=== PATIENT | male | born 1965 | race Caucasian/White ===

== ENCOUNTER 2016-04-24 11:15 | Inpatient (IN) ==
--- NOTE | 2016-04-23 20:30 | Discharge Summary ---
<Xiomy Crowell - Last Filed: 04/23/16 20:28> Date of Encounter: 04/25/16 - Discharge Diagnosis (1) Aseptic loosening of prosthetic knee Priority: Primary Status: Acute Qualifiers: Encounter type: initial encounter Qualified Code(s): T84.038A - Mechanical loosening of other internal prosthetic joint, initial encounter; Z96.659 - Presence of unspecified artificial knee joint (2) CAD (coronary artery disease) Priority: Secondary Status: Chronic Qualifiers: Coronary Disease-Associated Artery/Lesion type: unspecified vessel or lesion type [place] vs. transplanted heart: unspecified whether [place] or transplanted heart Associated angina: angina presence unspecified Qualified Code(s): I25.10 - Atherosclerotic heart disease of [place] coronary artery without angina pectoris (3) HTN (hypertension) Priority: Secondary Status: Chronic Qualifiers: Hypertension type: essential hypertension Qualified Code(s): I10 - Essential (primary) hypertension (4) Tobacco use Priority: Secondary Status: Chronic (5) Obesity Priority: Secondary Status: Chronic Qualifiers: Obesity type: unspecified obesity type Obesity severity: unspecified obesity severity Qualified Code(s): E66.9 - Obesity, unspecified - Discharge Medications Home Medications: Loratadine [Claritin] 10 mg PO DAILY 3 Days 03/06/15 [Rx] Lisinopril [Zestril] 10 mg PO DAILY 06/26/15 [History] Tizanidine HCl [Zanaflex] 4 mg PO Q8H PRN 06/26/15 [History] Aspirin Enteric Coated [Aspirin EC] 325 mg PO DAILY #21 tablet. 04/23/16 [Rx] OxyCODONE Immed Rel [Roxicodone 5 MG] 5 - 10 mg PO Q6HR PRN #40 tablet 04/23/16 [Rx] Aspirin 81 mg PO DAILY 04/24/16 [History] Clopidogrel [Plavix] 75 mg PO DAILY 04/24/16 [History] Folic Acid 1 mg PO HS 04/24/16 [History] Gabapentin [Neurontin] 600 mg PO TID 04/24/16 [History] HYDROcodone/Acet 7.5/325 mg [[place] 7.5-325 mg] 1 tab PO Q6H PRN 04/24/16 [ History] Hydrochlorothiazide 12.5 mg PO DAILY 04/24/16 [History] Hydroxyzine HCl 25 mg PO BID 04/24/16 [History] Lansoprazole [Prevacid] 30 mg PO HS 04/24/16 [History] Metoprolol XL (24 HR) Succ [Toprol Xl] 50 mg PO DAILY 04/24/16 [History] Rosuvastatin [Crestor] 40 mg PO HS 04/24/16 [History] Sertraline [Zoloft] 100 mg PO DAILY 04/24/16 [History] Allergies/Adverse Reactions: Allergies Penicillins Adverse Reaction (Verified 04/24/16 12:56) Rash Primary care physician: Terri Martinez MD - Patient Status Disposition: Home, Self-Care Condition: Good - Discharge Instructions Follow Up With: Antione Kerns MD [Partnered Physician] - 05/23/16 9:45 am Xiomy Crowell PAC [Physician Melt Superintendant] - 05/04/16 8:15 am Terri Martinez MD [Primary Care Provider] - - Hospital Course Hospital course: Mr. Shannon is a 50 year old male - Time Spent with Patient Total time spent providing and/or coordinating discharge services: <Antione Kerns - Last Filed: 04/26/16 08:45> Date of Encounter: 04/26/16 Time of Encounter: 08:44 - Discharge Diagnosis (1) Aseptic loosening of prosthetic knee Priority: Primary Status: Acute Qualifiers: Encounter type: subsequent encounter Qualified Code(s): T84.038D - Mechanical loosening of other internal prosthetic joint, subsequent encounter; Z96.659 - Presence of unspecified artificial knee joint (2) CAD (coronary artery disease) Priority: Secondary Status: Chronic Qualifiers: Coronary Disease-Associated Artery/Lesion type: [place] artery [place] vs. transplanted heart: [place] heart Associated angina: angina presence unspecified Qualified Code(s): I25.10 - Atherosclerotic heart disease of [place] coronary artery without angina pectoris (3) HTN (hypertension) Priority: Secondary Status: Chronic Qualifiers: Hypertension type: essential hypertension Qualified Code(s): I10 - Essential (primary) hypertension (4) Obesity Priority: Secondary Status: Chronic Qualifiers: Obesity type: unspecified obesity type Obesity severity: unspecified obesity severity Qualified Code(s): E66.9 - Obesity, unspecified (5) Tobacco use Priority: Secondary Status: Chronic Primary care physician: Terri Martinez MD - Patient Status Functional capacity at discharge: uses cane/walker Overall status at discharge: patient is progressing back to baseline - Hospital Course Hospital course: Mr. Shannon is a 50 year old male The patient had an uneventful postoperative course. They received antibiotics and physical therapy and were discharged in stable condition. There will follow -up in the office in 2 weeks. Aspirin DVT prophylaxis - Time Spent with Patient Total time spent providing and/or coordinating discharge services:
[2016-04-24] MEDS ORDERED: Ringers Solution, Lactated 1,000 ML IVC SCH ×2 (11:45→16:20)
[2016-04-24] MEDS ORDERED: Albuterol 2.5 MG/3 ML NEBULIZER IH ONE (11:46)
--- NOTE | 2016-04-24 11:48 | Anesthesia Evaluation PreOp ---
Date of Encounter: 04/24/16 Time of Encounter: 11:56 - Past History Planned Operation: left total knee revision Cardiac History: Denies any Significant Hx (left totalknee revision), [place] (1.5 years ago), HTN, Cardiac Stent (single stent 1.5 years ago. Patient reports he does not experience any angina) Pulmonary History: Smoker, Pack/yr (1ppd x 30 yrs) PATIENT CARE PROVIDER History: Denies Any Significant HX Other Medical History: Other (mkorbid obesity with BMI>42) Anesthesia History: No Prior Anesthetic Complications, Past Anesthesia (ORIF left ankle, ORIF right tib/fib, Left TKA 04/09) Alcohol Use: none Drug use: none Medications and Allergies Loratadine [Claritin] 10 mg PO DAILY 3 Days 03/06/15 [Rx] Rosuvastatin Calcium [Crestor] 5 mg PO DAILY 03/06/15 [History] Albuterol Sulfate [Albuterol Inhaler] 2 puff IH QID 2 Days 06/26/15 [Rx] Folic Acid 20 mg PO DAILY 06/26/15 [History] Lisinopril [Zestril] 10 mg PO DAILY 06/26/15 [History] Metoprolol [Lopressor] 50 mg PO DAILY 06/26/15 [History] Tizanidine HCl [Zanaflex] 4 mg PO Q3-4H 06/26/15 [History] Aspirin Enteric Coated [Aspirin EC] 325 mg PO DAILY #21 tablet. 04/23/16 [Rx] OxyCODONE Immed Rel [Roxicodone 5 MG] 5 - 10 mg PO Q6HR PRN #40 tablet 04/23/16 [Rx] Allergies Penicillins Adverse Reaction (Verified 06/26/15 16:43) Rash - Meds/Allergy Pre-op Review Medications Reviewed: Yes (Stopped plavix and ASA 1 week ago) Allergies Reviewed: Yes Beta Blockers on Current Med List: Yes If Beta Blockers taken, Date/Time (Last Dose taken): 04/24 morning ?time Anesthesia Results - Labs Laboratory Tests 04/09/15 04/18/16 04/18/16 14:18 16:05 16:05 WBC 7.5 Hgb 13.6 Hct 42.4 Plt Count 180 PT 12.1 INR 1.1 APTT 33.2 Sodium 136 Potassium 4.5 BUN 12 Creatinine 0.85 - Imaging EKG: report reviewed (NSR with occassional PVC) Anesthesia Exam Selected Entries 04/24/16 11:33 Temperature 98.7 F Pulse Rate 79 Respiratory Rate 18 Blood Pressure 134/86 O2 Sat by Pulse Oximetry 96 Height: 71in Weight: 300lbs NPO (# of Hours): 8 Pain Scale: 3 Pain Scale Used: Numeric (1 - 10) - HEENT Pupil (Motor): EOMI Mallampati: II Teeth: Edentulous Oral Opening: Greater than 3 - PATIENT CARE PROVIDER LOC: Oriented PATIENT CARE PROVIDER Motor: Normal RUE, Normal LUE, Normal RLE, Normal LLE, Normal Face PATIENT CARE PROVIDER Sensory: Normal: RUE, LUE, RLE, LLE, Face - Cardiac Rhythm: Regular Murmur: None - Pulmonary Breath Sounds: bilateral Clear Respiratory Effort: Symmetrical Anesthesia Assess/Plan ASA Score: 3 Modified [place]í Scale for Level of Consciousness: Cooperative, oriented, and tranquil Anesthetic Plan: General Monitoring Plan: Standard Monitors Recovery Plan: PACU (Discussed risks of GA and nerve block. Questions answered and agrees to proceed.)
[2016-04-24] MEDS ORDERED: *HR* Promethazine 25 MG/ML VIAL IVP PRN (11:52)
[2016-04-24] MEDS ORDERED: *HR* Propofol 200 MG/20 ML VIAL IVP ONE ×2 (11:57→13:46)
[2016-04-24] MEDS ORDERED: *HR* FentaNYL (PF) 100 MCG/2 ML VIAL ONE ×2 (11:57→13:27)
[2016-04-24] MEDS ORDERED: Dexamethasone 4 MG/ML VIAL ONE (11:57)
[2016-04-24] MEDS ORDERED: *HR* Succinylcholine 200 MG/10 ML VIAL IVP ONE (11:57)
[2016-04-24] MEDS ORDERED: Ondansetron 4 MG/2 ML VIAL ONE ×2 (11:57→12:51)
[2016-04-24] MEDS ORDERED: *HR* Midazolam HCl 2 MG/2 ML VIAL ONE (11:57)
[2016-04-24] MEDS ORDERED: Lidocaine -MPF 2% 2 ML VIAL ONE (11:57)
[2016-04-24] MEDS ORDERED: Lidocaine -MPF 4% 5 ML AMPUL ONE (11:57)
[2016-04-24] MEDS ORDERED: Clindamycin 900 MG/50 ML 900 MG/50 ML IV.SOLN IVPB ONE (12:00)
--- NOTE | 2016-04-24 12:13 | History & Physical Report ---
Date of Encounter: 04/24/16 Time of Encounter: 12:12 24 Hour HP Update - Instructions Instructions: If the History and Physical is less than 30 days old and was completed prior to A.M. admission and or procedure and has NOT been updated on calendar day of procedure please complete this update prior to performing procedure. - Update Patient reports changes in Medical Condition: No Changes in assessment/condition: No Changes in Medication: No Preop tests/diagnostics Reviewed: Yes Surgery Remains Indicated: Yes Consent for Planned Operative Procedure(s) Verified: Yes - Pre-Operative Checklist Preoperative Checklist Indicated: No Prophylactic Antibiotic Ordered: Yes Is VTE Prophylaxis Indicated?: Yes
[2016-04-24] MEDS ORDERED: Tetracaine/PF 20 MG/2 ML AMPUL SPINA ONE (12:44)
[2016-04-24] MEDS ORDERED: Bupivacaine/Clonidine Syringe 1 EACH SYRINGE ONE (12:57)
--- NOTE | 2016-04-24 13:41 | Anesthesia Procedures ---
Date of Encounter: 04/24/16 Time of Encounter: 13:10 Procedures: Anesthesia - Nerve Block Procedure Date: 04/24/16 Time: 13:10 Allergies/Adv Reactions: pcn Pre-op Diagnosis: left knee arthritis Surgical Procedure: left knee arthroplasty Checklist: Correct Patient Identifier, Correct procedure, History checked Correct side: Left Blood Thinner: No Monitor Applied: EKG, BP, Pulse Oximetry Supplemental Oxygen via Nasal Cannula (L/min): 2 Sedation: Versed (mg): 2 Sedation: Fentanyl (mcg): 100 Indication: Post Op Analgesia Pre-op Neuro Deficits: No Block Type: Femoral (ipack block (not sciatic block) regional anesthesia for posterior knee joint ) Catheter placed: No Sterile Technique: Yes Ultrasound used: Yes Anatomy identified: Yes Visual spread of Local: Yes Neuro Stimulation: Yes Nerve Stimulator Range: 0.2 - 0.4 mA Blood on Needle Aspiration: No Smooth Injection of Local: Yes Pain with Injection of Local: No Prep: Chlorhexadine Needle: 22 x 50 mm Stimuplex Local: Tetracaine, Other (bupivicane 0.5% + tetracaine 20mg ) Volume (cc): 50ml Number of Attempts: 1 Complications: None/effective block Vitals: Vital Signs - Last 8 Hours Temp Pulse Resp BP Pulse Ox 04/24/16 12:57 72 144/91 96 04/24/16 12:40 71 145/90 95 04/24/16 12:17 18 134/86 96 04/24/16 11:33 98.7 F 79 18 134/86 96 Intake and Output 04/23/16 04/24/16 04/24/16 23:59 07:59 15:59 Other: Weight 135.624 kg Patient Weight 04/24/16 23:59 Weight 135.624 kg Comments: per dr. [email or web address] request
[2016-04-24] MEDS ORDERED: Ketamine *HR* 500 MG/10 ML MDV ONE (13:48)
--- NOTE | 2016-04-24 14:12 | Orthopedic Operative Note ---
Date of procedure: 04/24/16 Pre-op diagnosis: Aseptic loosening left tibial component Post-op diagnosis: same Procedure: Procedure: Left revision tibial component Estimated blood loss: 200 cc Hardware: Arthrex tibia size 6 with 10 PS Cora Exam Under anesthesia: Full flexion full extension well-healed incision no swelling or erythema no varus valgus instability Procedural Notes: Loosening of tibial component Operative procedure: The patient was brought to the operating room and placed on the operating room table. After general anesthesia was administered the operative knee was examined. Findings were noted in the exam under anesthesia. The operative extremity was prepped and draped in sterile surgical fashion. The patient received IV antibiotics prior to skin incision. A standard midline incision was made centered over the patella. The incision was made through the skin and subcutaneous tissue through the old incision. A medial parapatellar tendon approach was performed. Care was taken to preserve tissue along the medial aspect of the patella. And to protect the patella tendon. The deep MCL was released off the medial tibia. The infra patella fat pad was excised. Cultures were obtained as well as Gram stain. The knee was brought into flexion the tibial poly-was removed. The femur was well fixed. Attention was then turned to the tibial component. The tibial component was loose and removed with an osteotome without any bone loss. Tibia was recut just below the level of the cement mantle. The tibia was prepared first sized to a 6 reamed and broached. The finishing punch was seated. Trial had good fit and fixation. Trial reduction revealed full extension and full flexion no varus valgus instability with an 10 PS Cora. Trial components removed knee sat for 2 minutes with a Betadine saline solution. It was irrigated out with pulse irrigation. The tibia cemented. The 10 PS Cora was seated and secure. The had full flexion and full extension and excellent patella tracking no varus valgus instability. After the cement hardened the knee was irrigated out again. The knee was taken through a range of motion had excellent patella tracking. The extensor mechanism was closed with a running #2 Fiberwire suture and a running #2 PDS suture. The deep tissue was irrigated and closed deep with #1 PDS suture superficially with 0 PDS suture. The skin was closed with Dermabond and skin carroll. The patient was placed in a sterile dressing and postoperative brace. They were extubated and transferred to recovery room in stable condition. Anesthesia: GETA Surgeon: Antione Kerns Spanish Linguist: Xiomy Crowell Condition: stable Disposition: PACU
[2016-04-24 15:13] LABS: Hematocrit 40.6 % (37.5-50.1); Hemoglobin 12.9 g/dL (12.9-16.9)
[2016-04-24] MEDS: *HR* HYDROmorphone (PF) 1 MG/ML SYRINGE IVP PRN ×5 (15:27→21:03)
--- NOTE | 2016-04-24 15:50 | Anesthesia Evaluation Post Op ---
Date of Encounter: 04/24/16 Time of Encounter: 15:49 - Vital Signs Vital Signs: Vital Signs/O2 Sat, Most Current Temp Pulse Resp BP Pulse Ox 98.2 F 76 18 140/92 96 04/24/16 15:18 04/24/16 15:38 04/24/16 15:38 04/24/16 15:38 04/24/16 15:38 - Lungs Lungs: Clear Ascult./Percussion - Airway Airway: Non-obstructed - Cardiovascular Regular Rate - Mental Status Mental Status: Alert & Oriented, Answers Appropriately - Pain Pain Scale: 6 Pain Scale used: Numeric (1 - 10) - Nausea Vomiting Nausea Vomiting: Not Present - Hydration Hydration: NPO, Has not voided - Discharge PostOp Status: Transfer Patient to floor
[2016-04-24] MEDS ORDERED: tiZANidine 4 MG TABLET PO PRN (16:20)
[2016-04-24] MEDS ORDERED: Temazepam 15 MG CAPSULE PO PRN (16:20)
[2016-04-24] MEDS ORDERED: Naloxone 0.4 MG/ML INJ IVP PRN (16:20)
[2016-04-24] MEDS ORDERED: Acetaminophen 325 MG TABLET PO PRN (16:20)
[2016-04-24] MEDS ORDERED: Sennosides 8.6 MG TABLET PO PRN (16:20)
[2016-04-24] MEDS ORDERED: MOM Conc 10 ML UD.LIQ PO PRN (16:20)
[2016-04-24] MEDS ORDERED: Albuterol Neb 1.25 MG/3 ML VIAL IH ONE (16:20)
[2016-04-24] MEDS ORDERED: *HR* OxyCODONE Immed Rel 5 MG TABLET PO PRN (16:20)
[2016-04-24] MEDS: *HR* Enoxaparin 30 MG/0.3 ML SYRINGE SQ SCH (17:53)
[2016-04-24] MEDS: Gabapentin 300 MG CAPSULE PO SCH ×2 (17:53→21:03)
[2016-04-24] MEDS ORDERED: *HR* Enoxaparin 30 MG/0.3 ML SYRINGE SQ SCH (18:00)
[2016-04-24] MEDS: *HR* OxyCODONE Immed Rel 5 MG TABLET PO PRN (18:01)
[2016-04-24] MEDS: Folic Acid 1 MG TABLET PO SCH (21:00)
[2016-04-24] MEDS: Clindamycin 900 MG/50 ML 900 MG/50 ML IV.SOLN IVPB SCH (21:01)
[2016-04-25] MEDS: Ondansetron 4 MG/2 ML VIAL IVP PRN ×2 (00:06→09:28)
[2016-04-25] MEDS: *HR* OxyCODONE Immed Rel 5 MG TABLET PO PRN ×4 (00:07→18:46)
[2016-04-25] MEDS: *HR* HYDROmorphone (PF) 1 MG/ML SYRINGE IVP PRN ×4 (02:31→20:03)
[2016-04-25] MEDS: *HR* Enoxaparin 30 MG/0.3 ML SYRINGE SQ SCH (05:03)
[2016-04-25] MEDS: Clindamycin 900 MG/50 ML 900 MG/50 ML IV.SOLN IVPB SCH (05:04)
[2016-04-25 05:23] LABS: Hematocrit 36.2 % (37.5-50.1); Hemoglobin 11.8 g/dL (12.9-16.9)
[2016-04-25 05:37] LABS: BUN/Creatinine Ratio 19 (6-26); Blood Urea Nitrogen 23 mg/dL (8-26); Calcium 8.9 mg/dL (8.6-10.8); Carbon Dioxide 22 mEq/L (19-29); Chloride 100 mEq/L (98-109); Glucose 109 mg/dL (70-99); Osmolality,Calculated 284 (280-300); Sodium 135 mEq/L (136-145); eGFR For African Americans > 60 (> 60); eGFR For Non-African Americans > 60 (> 60)
--- NOTE | 2016-04-25 06:22 | Orthopedics Progress Note ---
Date of Encounter: 04/25/16 Time of Encounter: 06:21 - Assessment and Plan (1) Aseptic loosening of prosthetic knee Current Visit: Yes Status: Acute Qualifiers: Encounter type: subsequent encounter Qualified Code(s): T84.038D - Mechanical loosening of other internal prosthetic joint, subsequent encounter; Z96.659 - Presence of unspecified artificial knee joint (2) CAD (coronary artery disease) Current Visit: Yes Status: Chronic Qualifiers: Coronary Disease-Associated Artery/Lesion type: [place] artery [place] vs. transplanted heart: [place] heart Associated angina: angina presence unspecified Qualified Code(s): I25.10 - Atherosclerotic heart disease of [place] coronary artery without angina pectoris (3) HTN (hypertension) Current Visit: Yes Status: Chronic Qualifiers: Hypertension type: essential hypertension Qualified Code(s): I10 - Essential (primary) hypertension (4) Obesity Current Visit: Yes Status: Chronic Qualifiers: Obesity type: unspecified obesity type Obesity severity: unspecified obesity severity Qualified Code(s): E66.9 - Obesity, unspecified (5) Tobacco use Current Visit: Yes Status: Chronic Subjective Interval history: Patient was seen this morning doing well without complaints. Afebrile vital signs stable. Operative extremity: Neurovascularly intact Bloody drainage on dressing change today Calves nontender Assessment and plan: Continue with postoperative care hematocrit 36 Objective Vital signs: Vital Signs Temp Pulse Resp BP Pulse Ox 04/25/16 04:00 98.3 F 81 18 117/71 95 04/25/16 00:00 98.0 F 85 20 114/72 94 L 04/24/16 20:30 16 97 04/24/16 18:59 98.3 F 88 18 116/80 91 L 04/24/16 17:55 98.6 F 87 22 115/78 93 L 04/24/16 17:12 98.6 F 82 20 96 04/24/16 16:27 98.3 F 84 20 123/86 97 04/24/16 16:04 97.8 F 78 18 142/88 98 04/24/16 15:58 80 18 143/89 97 04/24/16 15:48 98.0 F 78 18 144/86 97 04/24/16 15:38 76 18 140/92 96 04/24/16 15:28 78 18 157/105 96 04/24/16 15:18 98.2 F 85 18 154/98 94 L 04/24/16 15:08 91 18 169/105 94 L 04/24/16 14:58 89 18 152/90 93 L 04/24/16 14:48 97.5 F L 95 18 151/96 96 04/24/16 12:57 72 144/91 96 04/24/16 12:40 71 145/90 95 04/24/16 12:17 18 134/86 96 04/24/16 11:33 98.7 F 79 18 134/86 96 Intake and Output 04/24/16 04/24/16 04/25/16 15:59 23:59 07:59 Intake Total 50 / 50 50 / 50 Output Total 400 / 400 300 / 300 Balance -350 / -350 -250 / -250 Intake: IV Fluids 50 / 50 50 / 50 Cleocin 900 MG/50 ML 900 50 / 50 50 / 50 mg In 50 ml @ 50 mls/hr IVPB Q8H HEATH Rx#: [id number] Output: Urine 400 / 400 300 / 300 Other: Weight 135.624 kg - Labs CBC & BMP: 04/25/16 04:51 04/25/16 04:51 Labs: Abnormal lab results Hgb 11.8 g/dL (12.9-16.9) L 04/25/16 04:51 Hct 36.2 % (37.5-50.1) L 04/25/16 04:51 Sodium 135 mEq/L (136-145) L 04/25/16 04:51 Glucose 109 mg/dL (70-99) H 04/25/16 04:51 - VTE Documentation of Mechanical Device: Venous foot pump, device Consult Discharge Plan - Plan Referrals: Antione Kerns MD [Partnered Physician] - 05/23/16 9:45 am Xiomy Crowell, PAC [Physician Firepot Operator And Tender] - 05/04/16 8:15 am Terri Martinez MD [Primary Care Provider] -
[2016-04-25] MEDS: hydroCHLOROthiazide 25 MG TABLET PO SCH (08:09)
[2016-04-25] MEDS: Gabapentin 300 MG CAPSULE PO SCH ×3 (08:09→19:42)
[2016-04-25] MEDS: Metoprolol XL (24 HR) Succ 50 MG TAB.ER.24H PO SCH (08:09)
[2016-04-25] MEDS: Aspirin 81 MG TAB.CHEW PO SCH (08:09)
[2016-04-25] MEDS: Loratadine 10 MG TABLET PO SCH (08:09)
[2016-04-25] MEDS ORDERED: Ketorolac 30 MG/ML VIAL IVP PRN (12:56)
[2016-04-25] MEDS: Folic Acid 1 MG TABLET PO SCH (19:42)
[2016-04-25] MEDS ORDERED: 0.9 % Sodium Chloride 500 ML IVC ONE (23:06)
[2016-04-26] MEDS: *HR* OxyCODONE Immed Rel 5 MG TABLET PO PRN ×4 (06:03→19:41)
[2016-04-26 06:40] LABS: Hematocrit 33.2 % (37.5-50.1); Hemoglobin 10.6 g/dL (12.9-16.9)
[2016-04-26 06:49] LABS: Calcium 8.6 mg/dL (8.6-10.8); Potassium 4.1 mEq/L (3.5-4.5)
[2016-04-26] MEDS: hydroCHLOROthiazide 25 MG TABLET PO SCH (07:31)
[2016-04-26] MEDS: Gabapentin 300 MG CAPSULE PO SCH ×3 (07:50→20:05)
[2016-04-26] MEDS: Loratadine 10 MG TABLET PO SCH (07:50)
[2016-04-26] MEDS: Aspirin 81 MG TAB.CHEW PO SCH (07:50)
[2016-04-26] MEDS: Metoprolol XL (24 HR) Succ 50 MG TAB.ER.24H PO SCH (07:51)
--- NOTE | 2016-04-26 08:45 | Orthopedics Progress Note ---
Date of Encounter: 04/26/16 Time of Encounter: 08:45 - Assessment and Plan (1) Aseptic loosening of prosthetic knee Current Visit: Yes Status: Acute Qualifiers: Encounter type: subsequent encounter Qualified Code(s): T84.038D - Mechanical loosening of other internal prosthetic joint, subsequent encounter; Z96.659 - Presence of unspecified artificial knee joint (2) CAD (coronary artery disease) Current Visit: Yes Status: Chronic Qualifiers: Coronary Disease-Associated Artery/Lesion type: [place] artery [place] vs. transplanted heart: [place] heart Associated angina: angina presence unspecified Qualified Code(s): I25.10 - Atherosclerotic heart disease of [place] coronary artery without angina pectoris (3) HTN (hypertension) Current Visit: Yes Status: Chronic Qualifiers: Hypertension type: essential hypertension Qualified Code(s): I10 - Essential (primary) hypertension (4) Obesity Current Visit: Yes Status: Chronic Qualifiers: Obesity type: unspecified obesity type Obesity severity: unspecified obesity severity Qualified Code(s): E66.9 - Obesity, unspecified (5) Tobacco use Current Visit: Yes Status: Chronic Subjective Interval history: Patient was seen this morning doing well without complaints. Afebrile vital signs stable. Operative extremity: Neurovascularly intact Dressing clean dry and intact Calves nontender Assessment and plan: Continue with postoperative care hematocrit discharged today Objective Vital signs: Vital Signs Temp Pulse Resp BP Pulse Ox 04/26/16 06:37 98.5 F 76 18 107/64 95 04/26/16 05:59 110/65 04/26/16 02:34 98.5 F 78 16 100/65 94 L 04/26/16 01:04 87/60 04/26/16 00:03 88/56 04/25/16 22:59 98.3 F 68 16 82/52 96 04/25/16 19:57 98.5 F 71 16 108/71 96 04/25/16 18:14 66 107/62 04/25/16 15:14 98.2 F 66 18 106/70 96 04/25/16 14:47 66 98/57 04/25/16 12:30 75 115/65 04/25/16 11:57 103/66 04/25/16 11:00 98.3 F 95 20 101/59 96 Intake and Output 04/25/16 04/26/16 04/26/16 23:59 07:59 15:59 Intake Total 220 / 220 100 / 100 Output Total 200 / 200 400 / 400 Balance -300 / -300 Intake: Oral 220 / 220 100 / 100 Output: Urine 200 / 200 400 / 400 Other: Meal Dinner Percent of Meal Consumed 100% - Labs CBC & BMP: 04/26/16 06:12 04/26/16 06:12 Labs: Abnormal lab results Hgb 10.6 g/dL (12.9-16.9) L 04/26/16 06:12 Hct 33.2 % (37.5-50.1) L 04/26/16 06:12 BUN 33 mg/dL (8-26) H D 04/26/16 06:12 Creatinine 1.84 mg/dL (0.72-1.25) H D 04/26/16 06:12 Est GFR ( Amer) 47 (> 60) L 04/26/16 06:12 Est GFR (Non-Af Amer) 39 (> 60) L 04/26/16 06:12 - VTE Documentation of Mechanical Device: Venous foot pump, device Consult Discharge Plan - Plan Referrals: Antione Kerns MD [Partnered Physician] - 05/23/16 9:45 am Xiomy Crowell, PAC [Physician Electric Spot Welder] - 05/04/16 8:15 am Terri Martinez MD [Primary Care Provider] -
[2016-04-26] MEDS ORDERED: 0.9 % Sodium Chloride 500 ML ONE (09:33)
[2016-04-26] MEDS ORDERED: 0.9 % Sodium Chloride 500 ML IVC ONE (09:34)
[2016-04-26] MEDS: Ringers Solution, Lactated 1,000 ML IVC SCH (09:52)
[2016-04-26 15:18] LABS: Albumin 3.2 g/dL (3.5-5.0); BUN/Creatinine Ratio 21 (6-26); Blood Urea Nitrogen 29 mg/dL (8-26); Calcium 8.7 mg/dL (8.6-10.8); Carbon Dioxide 25 mEq/L (19-29); Chloride 99 mEq/L (98-109); Glucose 98 mg/dL (70-99); Osmolality,Calculated 282 (280-300); Phosphorous 2.6 mg/dL (2.3-4.7); Potassium 3.7 mEq/L (3.5-4.5); Sodium 133 mEq/L (136-145); eGFR For African Americans > 60 (> 60); eGFR For Non-African Americans 53 (> 60)
[2016-04-26] MEDS: Folic Acid 1 MG TABLET PO SCH (20:05)
[2016-04-27] MEDS: Ringers Solution, Lactated 1,000 ML IVC SCH (00:03)
[2016-04-27] MEDS: *HR* OxyCODONE Immed Rel 5 MG TABLET PO PRN ×4 (00:03→14:08)
--- NOTE | 2016-04-27 06:26 | Orthopedics Progress Note ---
Date of Encounter: 04/27/16 Time of Encounter: 06:25 - Assessment and Plan (1) Aseptic loosening of prosthetic knee Current Visit: Yes Status: Acute Qualifiers: Encounter type: subsequent encounter Qualified Code(s): T84.038D - Mechanical loosening of other internal prosthetic joint, subsequent encounter; Z96.659 - Presence of unspecified artificial knee joint (2) CAD (coronary artery disease) Current Visit: Yes Status: Chronic Qualifiers: Coronary Disease-Associated Artery/Lesion type: [place] artery [place] vs. transplanted heart: [place] heart Associated angina: angina presence unspecified Qualified Code(s): I25.10 - Atherosclerotic heart disease of [place] coronary artery without angina pectoris (3) HTN (hypertension) Current Visit: Yes Status: Chronic Qualifiers: Hypertension type: essential hypertension Qualified Code(s): I10 - Essential (primary) hypertension (4) Obesity Current Visit: Yes Status: Chronic Qualifiers: Obesity type: unspecified obesity type Obesity severity: unspecified obesity severity Qualified Code(s): E66.9 - Obesity, unspecified (5) Tobacco use Current Visit: Yes Status: Chronic Subjective Interval history: Patient was seen this morning doing well without complaints. Afebrile vital signs stable. Operative extremity: Neurovascularly intact Dressing clean dry and intact Calves nontender Assessment and plan: Continue with postoperative care discharged today Objective Vital signs: Vital Signs Temp Pulse Resp BP Pulse Ox 04/27/16 05:03 99.4 F 79 16 121/63 94 L 04/27/16 00:00 99.2 F 91 18 153/77 97 04/26/16 20:00 98.1 F 83 18 133/79 93 L 04/26/16 14:49 83 16 122/70 04/26/16 14:28 98.4 F 87 16 129/78 96 04/26/16 11:12 98.5 F 83 16 128/74 93 L 04/26/16 10:01 85 100/67 04/26/16 06:37 98.5 F 76 18 107/64 95 Intake and Output 04/26/16 04/26/16 04/27/16 15:59 23:59 07:59 Intake Total 1050 / 1050 1850 / 1850 400 / 400 Output Total 1500 / 1500 1974 / 1974 1600 / 1600 Balance -450 / -450 -125 / -125 -1200 / -1200 Intake: IV Fluids 500 / 500 1000 / 1000 0.9 % Sodium Chloride 500 500 / 500 ML @ 1875 mls/hr IVC . Q16M ONE Rx#:[id number] Lactated Ringers 1,000 ML 1000 / 1000 @ 75 mls/hr IVC .[id number] HEATH Rx#:[id number] Oral 550 / 550 850 / 850 400 / 400 Output: Urine 1500 / 1500 1974 / 1974 1600 / 1600 Other: # Voids 1 3 - Labs CBC & BMP: 04/26/16 06:12 04/26/16 14:39 Labs: Abnormal lab results Hgb 10.6 g/dL (12.9-16.9) L 04/26/16 06:12 Hct 33.2 % (37.5-50.1) L 04/26/16 06:12 Sodium 133 mEq/L (136-145) L 04/26/16 14:39 BUN 29 mg/dL (8-26) H 04/26/16 14:39 Creatinine 1.41 mg/dL (0.72-1.25) H 04/26/16 14:39 Est GFR (Non-Af Amer) 53 (> 60) L 04/26/16 14:39 Albumin 3.2 g/dL (3.5-5.0) L 04/26/16 14:39 - VTE Documentation of Mechanical Device: Venous foot pump, device Consult Discharge Plan - Plan Additional Instructions: Discharge Instructions: Total Knee Replacement Please call [facility] ([phone]), your Primary Care Physician, or report to the Emergency Room if you have any of the following symptoms: Nausea, vomiting, fever greater that 101.5, swelling, chest pain, shortness of breath, increased pain/redness/drainage/odor for your incision site, numbness/ tingling, or any other concerning symptoms. ACTIVITY:Weight-bearing as tolerated. You may progress off support (cruthches or walker) as tolerated. MEDICATIONS: Upon discharge resume your home medications. Take all the medications as prescribed. Take a stool softener if taking narcotic pain medications. Stool softeners are only effective if you drink enough fluids. Drink 6-8 glass of water or fluids a day, unless this is not allowed for another health problem. Despite using stool softeners, if you haven't had a bowel movement in 3 days, please switch to a gentle laxative. Gentle laxatives are sold over the counter. You should have a bowel movement within 24 hours, if not call the office. You will be discharged from the hospital with a prescription for pain medication. You are encouraged to decrease the use of narcotic pain medication as tolerated. Should you require a refill, please call the office. [facility] prescribes narcotic pain medication for only 4-6 weeks after surgery. If you require pain medication beyond this time periord, you may be referred to your Primary Care Physician or to the Pain Clinic for further evaluation. Plan ahead for refills on pain medication as many narcotics either need to be picked up at the office or mailed. It is best to call 48-72 hours in advance of needing a prescription refill so you don't run out of medication. To help control the post-operative pain, you may take NSAIDs (Aleve,Advil, Motrin, ibuprofen, naprosyn) or Tylenol as prescribed on the bottle in addition to the pain medication. ANTICOAGULATION (blood thinners): Continue your Aspirin, Lovenox or Coumadin as prescribed to help prevent a blood clot in the leg or in the lungs. As long as your incision remains dry and you tolerate the NSAIDs (Aleve, Advil, Motrin, ibuprofen, naprosyn), it is OK to use the NSAIDS while you are taking your anticoagulation medication. Should your incision start to drain, stop the NSAID and contact our office. Common symptoms of blood clot in the legs include: localized pain, swelling, calf tenderness, redness or discoloration of the skin. Blood clot in the lung symptoms include: shortness of breath, rapid pulse, sweating, and chest pain that worsens with deep breathing, coughing up blood, lightheadedness, feelings of anxiety. If you experience any of these symptoms notify your physician immediately, go to the emergency room, or if having trouble breathing, call 911. WOUND CARE: Leave the dressing on for 7 days. You may change the dressing if it becomes saturated greater than 50%. You can shower but not a tub bath or submerge your incision in water. Wash your hands with antibacterial soap, rinse and dry prior to any wound care. If you have carroll the visiting nurse or rehab facility can remove the stapes 10-14 days after surgery and place steri- strips across the wound. Leave the steri-strips in place until they fall off on their won. You may let water from the shower run on top of the steri-stirips. If you do not have a visiting nurse or rehab facility, you will need to return to the office at 10-14 days for the carroll to be removed. FOLLOW-UP: Please follow up with your surgeon in the orthopedic clinic in 4 weeks from the day of surgery. If you have carroll that need to be removed, you will need to come back to the office in 10-14 days from the day of surgery. Referrals: Antione Kerns MD [Partnered Physician] - 05/23/16 9:45 am Xiomy Crowell PAC [Physician Unemployment Specialist] - 05/04/16 8:15 am Terri Martinez MD [Primary Care Provider] -
[2016-04-27 09:05] LABS: Albumin 3.1 g/dL (3.5-5.0); BUN/Creatinine Ratio 16 (6-26); Blood Urea Nitrogen 18 mg/dL (8-26); Calcium 9.3 mg/dL (8.6-10.8); Carbon Dioxide 24 mEq/L (19-29); Chloride 102 mEq/L (98-109); Glucose 115 mg/dL (70-99); Osmolality,Calculated 285 (280-300); Phosphorous 2.4 mg/dL (2.3-4.7); Potassium 3.8 mEq/L (3.5-4.5); Sodium 136 mEq/L (136-145); eGFR For African Americans > 60 (> 60); eGFR For Non-African Americans > 60 (> 60)
[2016-04-27] MEDS: Metoprolol XL (24 HR) Succ 50 MG TAB.ER.24H PO SCH (09:30)
[2016-04-27] MEDS: Loratadine 10 MG TABLET PO SCH (09:30)
[2016-04-27] MEDS: Aspirin 81 MG TAB.CHEW PO SCH (09:30)
[2016-04-27] MEDS: Gabapentin 300 MG CAPSULE PO SCH ×2 (09:30→14:07)
[2016-04-27 14:47] VITALS: BP 106/68
== END 2016-04-27 17:56 | disposition home or self-care (01) | DRG 302 ==
LOC: SAMDAY 11:15 → 3NENU 16:43
PROVIDERS: ADMIT Orthopaedic Surgery; ATTEND Orthopaedic Surgery